=== PATIENT | female | born 1970 | race Caucasian/White ===

== ENCOUNTER 2018-01-12 13:03 | Emergency (ER) | payer SELFPAY ==
[~2018-01-12 13:03] MED LIST: DOXYCYCLINE HYCLATE 100 MG CAP/TAB PO SCH
[2018-01-12 13:13] VITALS: BP 170/108
--- NOTE | 2018-01-12 13:15 | EDPHY ---
H & P Stated Complaint: Possible spider bite Time Seen by Provider: 01/12/18 13:15 - Personal History LMP (Females 10-55): 15-21 Days Ago Current Tetanus/Diphtheria Vaccine: No Current Tetanus Diphtheria and Acellular Pertussis (TDAP): No - Medical/Surgical History Hx Asthma: No Hx Chronic Respiratory Disease: No Hx Diabetes: No Hx Cardiac Disease: No Hx Renal Disease: No Hx Cirrhosis: No Hx Alcoholism: No Hx HIV/AIDS: No Hx Splenectomy or Spleen Trauma: No Other PMH: hypothyroid, appy, brain bleed - Social History Smoking Status: Current every day smoker Constitutional: Initial Vital Signs Temperature (C) 36.7 C 01/12/18 13:10 Heart Rate 91 01/12/18 13:10 Respiratory Rate 16 01/12/18 13:10 Blood Pressure 170/108 H 01/12/18 13:10 O2 Sat (%) 97 01/12/18 13:10 O2 Delivery Mode Room Air Allergies/Adverse Reactions: clarithromycin [From Biaxin] Allergy (Verified 01/12/18 13:10) morphine Allergy (Verified 01/12/18 13:09) Home Medications: Medication Instructions Recorded Doxycycline Hyclate 100 mg PO BID #14 tablet 01/12/18 Medical Decision Making ED Course/Re-evaluation: CHIEF COMPLAINT: Possible spider bite HISTORY OF PRESENT ILLNESS: The patient is a 47 y/o female complaining of a possible spider bite while travelling in [place] and [place], 2-3 days ago. For the past several days she has had more redness on her right hip where she believes the spider bit her. Denies fever, numbness, paresthesias, chest pain, shortness of breath, abdominal pain, urinary or bowel complaints. REVIEW OF SYSTEMS: A 10 point review of systems was performed and is negative with the exception of the elements mentioned in the history of present illness. PHYSICAL EXAM: HR, BP, O2 Sat, RR. Temp noted General Appearance: Alert, well hydrated, appropriate, and non-toxic appearing. Head: Atraumatic without scalp tenderness or obvious injury Eyes: Pupils equal, round, reactive to light and accommodation, EOMI, no trauma , no injection. Ears: Clear bilaterally, no perforation, normal landmarks Nose: Atraumatic, no rhinorrhea, clear. Throat: There is no erythema or exudates, no lesions, normal tonsils, mucus membranes moist. Neck: Supple, 2+ carotid upstroke, nontender, no lymphadenopathy. Respiratory: No retractions, no distress, no wheezes, and no accessory muscle use. Lungs are clear to auscultation bilaterally. Cardiovascular: Regular rate and rhythm, no murmurs, rubs, or gallops. Bilateral carotid, radial, dorsalis pedis, and posterior tibial pulses intact. Good capillary refill all extremities. Gastrointestinal: Abdomen is soft, nontender, non-distended, no masses, no rebound, no guarding, no peritoneal signs. Musculoskeletal: Normal active ROM of all extremities, atraumatic. Neurological: Alert, appropriate, and interactive. The patient has normal DTRs and non-focal cranial nerves, motor, sensory, and cerebellar exam. Skin: Right hip erythema around small abscess. No rashes, good turgor, no nodules on palpation. Past medical history: Hypothyroid, brain bleed Past surgical history: Appendectomy Family history: Denies Social history: Originally from [place], transient, single DIFFERENTIAL DIAGNOSIS: The differential diagnosis for the patient's erythema included but was not limited to spider bite, cellulitis, viral syndrome, and sepsis. MEDICAL DECISION MAKING: The patient is a 47 y/o female presenting with a possible spider bite while travelling in [place] and [place], 2-3 days ago. On exam she has erythema around a small abscess on her right hip. She is not febrile or toxic appearing. Laboratory and imaging results are not indicated at this time. 1322: Spoke with case management regarding outpatient follow up and antibiotics. Reassessed patient and discussed doxycycline prescription. Return precautions provided; patient is comfortable with this plan. Departure - Departure Disposition: Home, Routine, Self-Care Clinical Impression: Insect bite Qualifiers: Encounter type: initial encounter Qualified Code(s): W57.XXXA - Bitten or stung by nonvenomous insect and other nonvenomous arthropods, initial encounter Condition: Good Instructions: Doxycycline (By mouth), Insect Bite or Sting (ED) Additional Instructions: 1. Take Doxycycline as prescribed. 2. Follow-up with your primary doctor within 72 hours. 3. Return to the Emergency Department for fever, redness, discharge from wound, increasing pain or other worsening of condition. Referrals: [facility],. [Clinic] - As per Instructions Prescriptions: Doxycycline Hyclate 100 mg PO BID #14 tablet Report Scribed for: William Cerda Report Scribed by: Shannan You Date of Report: 01/12/18 Time of Report: 13:20
== END 2018-01-12 13:43 | disposition home or self-care (01) ==
DX: S70.261A Insect bite (nonvenomous), right hip, initial encounter (principal); F17.200 Nicotine dependence, unspecified, uncomplicated; W57.XXXA Bitten or stung by nonvenomous insect and other nonvenomous arthropods, initial encounter; Y92.89 Other specified places as the place of occurrence of the external cause; Y99.8 Other external cause status